=== PATIENT | female | born 1960 | race African-American/Black ===

== ENCOUNTER 2018-04-18 13:33 | Inpatient (IN) | payer OTHER ==
[~2018-04-18] VITALS: Ht 167.6 cm; Wt 77.1 kg
[~2018-04-18 13:33] MED LIST: AMOX1TAB61 PO; DOXY100T PO; FLUT1DIS3 IH; PRED-220 PO
--- NOTE | 2018-04-18 14:04 | PHYS DOC ---
Past Medical History Past Medical History: Asthma, High Cholesterol, Hypertension Past Surgical History: Hysterectomy Alcohol Use: Occasionally Drug Use: None Adult General Chief Complaint Chief Complaint: SHORTNESS OF BREATH HPI HPI Patient is a 57 year old female was presenting to the emergency room chief complaint shortness of breath URI noted yesterday shortness with increased at 4 AM today history of asthma last admission over 3 years ago she had been doing quite well overall. Symptoms are moderate in there slowly worsening with time no relief with home treatment Review of Systems Review of Systems Constitutional: Denies fever or chills [] Eyes: Denies change in visual acuity, redness, or eye pain [] Cardiovascular: No additional information not addressed in HPI [] GI: Denies abdominal pain, nausea, vomiting, bloody stools or diarrhea [] : Denies dysuria or hematuria [] Neurologic: Denies headache, focal weakness or sensory changes [] Endocrine: Denies polyuria or polydipsia [] All other systems were reviewed and found to be within normal limits, except as documented in this note. Current Medications Current Medications Current Medications Medications (Trade) Dose Ordered Sig/Iris Start Time Stop Time Status Last Admin Dose Admin Albuterol Sulfate (Ventolin Neb Soln) 10 mg 1X ONCE 04/18/18 14:30 04/18/18 14:31 DC 04/18/18 14:11 10 MG Albuterol/ Ipratropium (Duoneb) 3 ml RTQID 04/18/18 16:00 04/19/18 15:59 Magnesium Sulfate/ Dextrose 100 ml @ 100 mls/hr 1X ONCE 04/18/18 15:30 04/18/18 16:29 04/18/18 15:50 100 MLS/HR Methylprednisolone Sodium Succinate (SOLU-Medrol 125MG VIAL) 125 mg 1X ONCE 04/18/18 14:30 04/18/18 14:31 DC 04/18/18 14:20 125 MG Potassium Chloride (KCl Oral Soln) 40 meq 1X ONCE 04/18/18 15:45 04/18/18 15:46 DC 04/18/18 15:52 40 MEQ Allergies Allergies Allergies Coded Allergies Type Severity Reaction Last Updated Verified No Known Drug Allergies 07/01/15 No Physical Exam Physical Exam Constitutional: Well developed, well nourished, mild distress, non-toxic appearance. [] HENT: Normocephalic, atraumatic, bilateral external ears normal, oropharynx moist, no oral exudates, nose normal. [] Eyes: PERRLA, EOMI, conjunctiva normal, no discharge. [] Neck: Normal range of motion, no tenderness, supple, no stridor. [] Cardiovascular:Heart rate regular rhythm, no murmur [] Lungs & Thorax: Diffuse wheezing with accessory muscle use speak in short sentences Abdomen: Bowel sounds normal, soft, no tenderness, no masses, no pulsatile masses. [] Skin: Warm, dry, no erythema, no rash. [] Back: No tenderness, no CVA tenderness. [] Extremities: No tenderness, no cyanosis, no clubbing, ROM intact, no edema. [] Neurologic: Alert and oriented X 3, normal motor function, normal sensory function, no focal deficits noted. [] Psychologic: Affect normal, judgement normal, mood normal. [] Current Patient Data Vital Signs Vital Signs Date Time Temp Pulse Resp B/P (MAP) Pulse Ox O2 Delivery O2 Flow Rate FiO2 04/18/18 14:11 96 Nasal Cannula 3.0 04/18/18 13:42 98.7 102 24 166/81 (109) 98.7 Lab Values Laboratory Tests Test 04/18/18 14:08 White Blood Count 17.2 x10^3/uL (4.0-11.0) H Red Blood Count 3.97 x10^6/uL (3.50-5.40) Hemoglobin 12.0 g/dL (12.0-15.5) Hematocrit 35.6 % (36.0-47.0) L Mean Corpuscular Volume 90 fL (79-100) Mean Corpuscular Hemoglobin 30 pg (25-35) Mean Corpuscular Hemoglobin Concent 34 g/dL (31-37) Red Cell Distribution Width 14.6 % (11.5-14.5) H Platelet Count 477 x10^3/uL (140-400) H Neutrophils (%) (Auto) 87 % (31-73) H Lymphocytes (%) (Auto) 8 % (24-48) L Monocytes (%) (Auto) 5 % (0-9) Eosinophils (%) (Auto) 0 % (0-3) Basophils (%) (Auto) 0 % (0-3) Neutrophils # (Auto) 15.0 x10^3uL (1.8-7.7) H Lymphocytes # (Auto) 1.3 x10^3/uL (1.0-4.8) Monocytes # (Auto) 0.8 x10^3/uL (0.0-1.1) Eosinophils # (Auto) 0.0 x10^3/uL (0.0-0.7) Basophils # (Auto) 0.1 x10^3/uL (0.0-0.2) Segmented Neutrophils % 81 % (35-66) H Band Neutrophils % 4 % (0-9) Lymphocytes % 10 % (24-48) L Monocytes % 5 % (0-10) Platelet Estimate Increased (ADEQUATE) Sodium Level 139 mmol/L (136-145) Potassium Level 3.2 mmol/L (3.5-5.1) L Chloride Level 105 mmol/L (98-107) Carbon Dioxide Level 26 mmol/L (21-32) Anion Gap 8 (6-14) Blood Urea Nitrogen 12 mg/dL (7-20) Creatinine 0.9 mg/dL (0.6-1.0) Estimated GFR (Cockcroft-Gault) 78.1 BUN/Creatinine Ratio 13 (6-20) Glucose Level 119 mg/dL (70-99) H Calcium Level 10.0 mg/dL (8.5-10.1) Total Bilirubin 0.5 mg/dL (0.2-1.0) Aspartate Amino Transferase (AST) 21 U/L (15-37) Alanine Aminotransferase (ALT) 22 U/L (14-59) Alkaline Phosphatase 132 U/L (46-116) H Total Protein 8.6 g/dL (6.4-8.2) H Albumin 4.0 g/dL (3.4-5.0) Albumin/Globulin Ratio 0.9 (1.0-1.7) L Laboratory Tests 04/18/18 14:08 Laboratory Tests 04/18/18 14:08 EKG EKG Normal sinus rhythm rate of 96 no acute ischemic changes noted interpreted by me time of encounter no STEMI. Radiology/Procedures Radiology/Procedures [] Impressions: Chest x-ray negative Course & Med Decision Making Course & Med Decision Making Pertinent Labs and Imaging studies reviewed. (See chart for details) []57-year-old female presenting with asthma exacerbation. Patient was given hour continuous nebs as well as Solu-Medrol despite that patient still wheezing she has improved air movement after the hour of continuous nebs but still quite dyspneic. She is able to speak full sentences so I do not think that she requires BiPAP she is maintaining her oxygenation however respiratory therapy was called for repeat albuterol therapy and I spoke with Dr. Jon for [facility]ission to the hospital for further evaluation of the asthma. Dragon Disclaimer Dragon Disclaimer This electronic medical record was generated, in whole or in part, using a voice recognition dictation system. Departure Departure Impression: Primary Impression: Asthma exacerbation Disposition: ADMITTED INPATIENT Condition: STABLE Referrals: NO PCP (PCP) MOMO LUZ MD Apr 18, 2018 14:04
--- NOTE | 2018-04-18 14:11 | EKG ---
[facility] [address] [place] [id number] Test Date: 2018-04-18 Test Time: 14:05:59 Pat Name: JUVE VELA Department: Room: Gender: F Retirement Administrator: : 1960 Requested By: MOMO LUZ Order Number: [id number] Reading MD: Dorian Hamilton MD Measurements Intervals [place] Rate: 95 P: 57 NC: 154 QRS: -31 QRSD: 76 T: 59 QT: 344 QTc: 435 Interpretive Statements SINUS RHYTHM ABNORMAL LEFT AXIS DEVIATION LOW LIMB LEAD VOLTAGE Electronically Signed On 04-23-2018 11:45:21 CDT by Dorian Hamilton MD
[2018-04-18 14:26] LABS: BASO # 0.1 x10^3/uL (0.0-0.2); BASO % 0 % (0-3); EOS % 0 % (0-3); HEMATOCRIT 35.6 % (36.0-47.0); LYMPH # 1.3 x10^3/uL (1.0-4.8); LYMPH % 8 % (24-48); MEAN CORPUSCULAR HEMOGLOBIN 30 pg (25-35); MEAN CORPUSCULAR HGB CONC 34 g/dL (31-37); MEAN CORPUSCULAR VOLUME 90 fL (79-100); MONO # 0.8 x10^3/uL (0.0-1.1); MONO % 5 % (0-9); NEUT % 87 % (31-73); PLATELET COUNT 477 x10^3/uL (140-400); RED BLOOD COUNT 3.97 x10^6/uL (3.50-5.40); RED CELL DISTRIBUTION WIDTH 14.6 % (11.5-14.5); WHITE BLOOD COUNT 17.2 x10^3/uL (4.0-11.0)
[2018-04-18] MEDS ORDERED: methylPREDNISolone SOD SUCC PF 125 MG/2 ML VIAL. IV ONE (14:30)
[2018-04-18] MEDS ORDERED: ALBUTEROL SULFATE 2.5 MG/3 ML NEBU. CONT NEB ONE (14:30)
--- NOTE | 2018-04-18 14:37 | RAD ---
EXAM: Chest, single view. HISTORY: Difficulty breathing. COMPARISON: 07/01/2015 FINDINGS: A frontal view of the chest is obtained. There is no infiltrate, pleural effusion or pneumothorax. The heart is normal in size for portable technique. IMPRESSION: No acute pulmonary finding. Electronically signed by: Cara Stacy MD (04/18/2018 2:34 PM) [facility]
[2018-04-18 14:43] LABS: CREATININE 0.9 mg/dL (0.6-1.0); GFR 78.1; POTASSIUM 3.2 mmol/L (3.5-5.1)
[2018-04-18 14:48] LABS: ALBUMIN/GLOBULIN RATIO 0.9 (1.0-1.7); TOTAL BILIRUBIN 0.5 mg/dL (0.2-1.0); TOTAL PROTEIN 8.6 g/dL (6.4-8.2)
[2018-04-18 15:27] LABS: % BANDS 4 % (0-9); % LYMPHS 10 % (24-48); % MONOS 5 % (0-10); % SEGS 81 % (35-66)
[2018-04-18] MEDS ORDERED: MAGNESIUM SULFATE 1GM 100 ML IV ONE (15:30)
[2018-04-18 15:31] LABS: PLT ESTIMATE INCREASED (ADEQUATE)
[2018-04-18] MEDS ORDERED: POTASSIUM CHLORIDE 20 MEQ/15 ML ORAL LIQUID. PO ONE (15:45)
[2018-04-18] MEDS: IPRATRPIUM/ALBUTEROL 0.5/2.5MG 3 ML NEBU. NEB SCH ×2 (15:57→18:20)
[2018-04-18] MEDS ORDERED: NAPR500T8 PO (17:24)
[2018-04-18] MEDS ORDERED: ALBU2.5V5 NEB (17:24)
[2018-04-18] MEDS ORDERED: AMLO10TA6 PO (17:33)
[2018-04-18] MEDS ORDERED: SPIR25TA5 PO (17:33)
[2018-04-18] MEDS ORDERED: METF850T8 PO (17:33)
[2018-04-18] MEDS ORDERED: HYDR12.53 PO (17:33)
[2018-04-18] MEDS: BUDESONIDE 0.5 MG/2 ML NEBU. NEB SCH (18:20)
--- NOTE | 2018-04-18 19:02 | PDOC1 ---
History and Physical Date of Admission Date of Admission DATE: 04/18/18 TIME: 19:02 Identification/Chief Complaint Chief Complaint presented to er with severe dyspnea, wheezing, did not respond to efforts in ER with conservative rx Past Medical History Past Medical History Past Medical History Past Medical History: Asthma, High Cholesterol, Hypertension Past Surgical History: Hysterectomy Alcohol Use: Occasionally Drug Use: occ THC smokes family hx asthma Cardiovascular: HTN, Hyperlipidemia Pulmonary: Asthma GI: GERD Musculoskeletal: Osteoarthritis Endocrine: Other Past Surgical History Past Surgical History: Other Family History Family History: Asthma Social History Smoke: No ALCOHOL: none Drugs: None, Marijuana Current Medications Current Medications Current Medications Albuterol Sulfate (Ventolin Neb Soln) 10 mg 1X ONCE CONT NEB Last administered on 04/18/18at 14:11; Start 04/18/18 at 14:30; Stop 04/18/18 at 14:31 ; Status DC Methylprednisolone Sodium Succinate (SOLU-Medrol 125MG VIAL) 125 mg 1X ONCE IV Last administered on 04/18/18at 14:20; Start 04/18/18 at 14:30; Stop 04/18/18 at 14:31; Status DC Magnesium Sulfate/ Dextrose 100 ml @ 100 mls/hr 1X ONCE IV Last administered on 04/18/18at 15:50; Start 04/18/18 at 15:30; Stop 04/18/18 at 16:29; Status DC Potassium Chloride (KCl Oral Soln) 40 meq 1X ONCE PO Last administered on 04/18at 15:52; Start 04/18/18 at 15:45; Stop 04/18/18 at 15:46; Status DC Albuterol/ Ipratropium (Duoneb) 3 ml RTQID NEB Last administered on 04/18/18at 18:20; Start 04/18/18 at 16:00; Stop 04/19/18 at 15:59 Albuterol Sulfate (Ventolin Neb Soln) 2.5 mg PRN Q4HRS PRN NEB SHORTNESS OF BREATH; Start 04/18/18 at 17:45 Amlodipine Besylate (Norvasc) 10 mg DAILY PO ; Start 04/19/18 at 09:00 Metformin HCl (Glucophage) 850 mg DAILYWBKFT PO ; Start 04/19/18 at 08:00 Budesonide (Pulmicort) 0.5 mg RTBID NEB Last administered on 04/18/18at 18:20; Start 04/18/18 at 20:00 Hydrochlorothiazide (Hydrodiuril) 25 mg DAILY PO ; Start 04/19/18 at 09:00 Naproxen (Naprosyn) 750 mg BID PO ; Start 04/18/18 at 21:00 Spironolactone (Aldactone) 25 mg DAILY PO ; Start 04/19/18 at 09:00 Cetirizine HCl (ZyrTEC) 10 mg DAILY PO ; Start 04/19/18 at 09:00 Methylprednisolone Sodium Succinate (SOLU-Medrol 125MG VIAL) 100 mg Q8HRS IV ; Start 04/18/18 at 22:00 Montelukast Sodium (Singulair) 10 mg QHS PO ; Start 04/18/18 at 21:00 Active Scripts Active Reported Amlodipine Besylate 10 Mg Tablet 10 Mg PO DAILY Metformin Hcl 850 Mg Tablet 850 Mg PO DAILYWBKFT Spironolactone 25 Mg Tablet 1 Tab PO DAILY Hydrochlorothiazide Capsule (Hydrochlorothiazide) 12.5 Mg Capsule 25 Mg PO DAILY Albuterol Sulfate Neb Soln (Albuterol Sulfate) 2.5 Mg/3 Ml Vial.neb 1 Vial NEB PRN Q4HRS Naproxen 500 Mg Tablet.dr 750 Mg PO BID patient takes in am and at night Advair 250-50 Diskus (Fluticasone/Salmeterol) 1 Each Disk.w.dev 1 Puff IH BID Allergies Allergies: Coded Allergies: No Known Drug Allergies (Unverified , 07/01/15) ROS Review of System Review of Systems Review of Systems Constitutional: Denies fever or chills [] Eyes: Denies change in visual acuity, redness, or eye pain [] pulm very SOA with wheezing Cardiovascular: No additional information not addressed in HPI [] GI: Denies abdominal pain, nausea, vomiting, bloody stools or diarrhea [] : Denies dysuria or hematuria [] Neurologic: Denies headache, focal weakness or sensory changes [] Endocrine: Denies polyuria or polydipsia [] 14 pt systems were reviewed and found to be within normal limits, except as documented Physical Exam Physical Exam Physical Exam Physical Exam Constitutional: Well developed, well nourished, mild distress, non-toxic appearance. [] HENT: Normocephalic, atraumatic, bilateral external ears normal, oropharynx moist, no oral exudates, nose normal. [] Eyes: PERRLA, EOMI, conjunctiva normal, no discharge. [] Neck: Normal range of motion, no tenderness, supple, no stridor. [] Cardiovascular:Heart rate regular rhythm, no murmur [] Lungs & Thorax: Diffuse wheezing with accessory muscle use speak in short sentences Abdomen: Bowel sounds normal, soft, no tenderness, no masses, no pulsatile masses. [] Skin: Warm, dry, no erythema, no rash. [] Back: No tenderness, no CVA tenderness. [] Extremities: No tenderness, no cyanosis, no clubbing, ROM intact, no edema. [] Neurologic: Alert and oriented X 3, normal motor function, normal sensory function, no focal deficits noted. [] Psychologic: Affect normal, judgement normal, mood normal. [] General: Alert, Oriented X3, Cooperative HEENT: PERRLA Rectal Exam: not examined PELVIC: Examination not indicated Extremities: No cyanosis Neuro: Normal speech, Cranial nerves 3-12 NL Psych/Mental Status: Mental status NL, Mood NL Vitals Vitals Vital Signs Date Time Temp Pulse Resp B/P (MAP) Pulse Ox O2 Delivery O2 Flow Rate FiO2 04/18/18 18:20 95 Nasal Cannula 3.0 04/18/18 16:30 92 16 149/73 (98) 04/18/18 13:42 98.7 98.7 Labs Labs Laboratory Tests Test 04/18/18 14:08 White Blood Count 17.2 x10^3/uL (4.0-11.0) Red Blood Count 3.97 x10^6/uL (3.50-5.40) Hemoglobin 12.0 g/dL (12.0-15.5) Hematocrit 35.6 % (36.0-47.0) Mean Corpuscular Volume 90 fL (79-100) Mean Corpuscular Hemoglobin 30 pg (25-35) Mean Corpuscular Hemoglobin Concent 34 g/dL (31-37) Red Cell Distribution Width 14.6 % (11.5-14.5) Platelet Count 477 x10^3/uL (140-400) Neutrophils (%) (Auto) 87 % (31-73) Lymphocytes (%) (Auto) 8 % (24-48) Monocytes (%) (Auto) 5 % (0-9) Eosinophils (%) (Auto) 0 % (0-3) Basophils (%) (Auto) 0 % (0-3) Neutrophils # (Auto) 15.0 x10^3uL (1.8-7.7) Lymphocytes # (Auto) 1.3 x10^3/uL (1.0-4.8) Monocytes # (Auto) 0.8 x10^3/uL (0.0-1.1) Eosinophils # (Auto) 0.0 x10^3/uL (0.0-0.7) Basophils # (Auto) 0.1 x10^3/uL (0.0-0.2) Segmented Neutrophils % 81 % (35-66) Band Neutrophils % 4 % (0-9) Lymphocytes % 10 % (24-48) Monocytes % 5 % (0-10) Platelet Estimate Increased (ADEQUATE) Sodium Level 139 mmol/L (136-145) Potassium Level 3.2 mmol/L (3.5-5.1) Chloride Level 105 mmol/L (98-107) Carbon Dioxide Level 26 mmol/L (21-32) Anion Gap 8 (6-14) Blood Urea Nitrogen 12 mg/dL (7-20) Creatinine 0.9 mg/dL (0.6-1.0) Estimated GFR (Cockcroft-Gault) 78.1 BUN/Creatinine Ratio 13 (6-20) Glucose Level 119 mg/dL (70-99) Calcium Level 10.0 mg/dL (8.5-10.1) Total Bilirubin 0.5 mg/dL (0.2-1.0) Aspartate Amino Transf (AST/SGOT) 21 U/L (15-37) Alanine Aminotransferase (ALT/SGPT) 22 U/L (14-59) Alkaline Phosphatase 132 U/L (46-116) Total Protein 8.6 g/dL (6.4-8.2) Albumin 4.0 g/dL (3.4-5.0) Albumin/Globulin Ratio 0.9 (1.0-1.7) Laboratory Tests Test 04/18/18 14:08 White Blood Count 17.2 x10^3/uL (4.0-11.0) Red Blood Count 3.97 x10^6/uL (3.50-5.40) Hemoglobin 12.0 g/dL (12.0-15.5) Hematocrit 35.6 % (36.0-47.0) Mean Corpuscular Volume 90 fL (79-100) Mean Corpuscular Hemoglobin 30 pg (25-35) Mean Corpuscular Hemoglobin Concent 34 g/dL (31-37) Red Cell Distribution Width 14.6 % (11.5-14.5) Platelet Count 477 x10^3/uL (140-400) Neutrophils (%) (Auto) 87 % (31-73) Lymphocytes (%) (Auto) 8 % (24-48) Monocytes (%) (Auto) 5 % (0-9) Eosinophils (%) (Auto) 0 % (0-3) Basophils (%) (Auto) 0 % (0-3) Neutrophils # (Auto) 15.0 x10^3uL (1.8-7.7) Lymphocytes # (Auto) 1.3 x10^3/uL (1.0-4.8) Monocytes # (Auto) 0.8 x10^3/uL (0.0-1.1) Eosinophils # (Auto) 0.0 x10^3/uL (0.0-0.7) Basophils # (Auto) 0.1 x10^3/uL (0.0-0.2) Segmented Neutrophils % 81 % (35-66) Band Neutrophils % 4 % (0-9) Lymphocytes % 10 % (24-48) Monocytes % 5 % (0-10) Platelet Estimate Increased (ADEQUATE) Sodium Level 139 mmol/L (136-145) Potassium Level 3.2 mmol/L (3.5-5.1) Chloride Level 105 mmol/L (98-107) Carbon Dioxide Level 26 mmol/L (21-32) Anion Gap 8 (6-14) Blood Urea Nitrogen 12 mg/dL (7-20) Creatinine 0.9 mg/dL (0.6-1.0) Estimated GFR (Cockcroft-Gault) 78.1 BUN/Creatinine Ratio 13 (6-20) Glucose Level 119 mg/dL (70-99) Calcium Level 10.0 mg/dL (8.5-10.1) Total Bilirubin 0.5 mg/dL (0.2-1.0) Aspartate Amino Transf (AST/SGOT) 21 U/L (15-37) Alanine Aminotransferase (ALT/SGPT) 22 U/L (14-59) Alkaline Phosphatase 132 U/L (46-116) Total Protein 8.6 g/dL (6.4-8.2) Albumin 4.0 g/dL (3.4-5.0) Albumin/Globulin Ratio 0.9 (1.0-1.7) VTE Prophylaxis Ordered VTE Prophylaxis Devices: No VTE Pharmacological Prophylaxi: Yes Assessment/Plan Assessment/Plan impression 1. acute hypoxic resp failure 2. mod intermittent asthma with severe acute exacerbation 3. thc abuse 4. metabolic syndrome plan 1. iv steroids, taper 2. albuterol nebs q 4 hrs 3. singulair 10mg po q hs 4. zyrtec 10mg po daily 5. avoid THC USE, educated 6. o2 support 7. gi prophylaxis 8. sq lovenox dvt prophylaxis SATISH LEE MD Apr 18, 2018 19:02
[2018-04-18] MEDS ORDERED: POTASSIUM CHLORIDE 20 MEQ TABLET.ER. PO ONE (19:15)
[2018-04-18 19:42] VITALS: BP 132/79
[2018-04-18] MEDS: NAPROXEN 250 MG TABLET PO SCH (21:05)
[2018-04-18] MEDS: methylPREDNISolone SOD SUCC PF 125 MG/2 ML VIAL. IV SCH (21:06)
[2018-04-18] MEDS: MONTELUKAST SODIUM 10 MG TABLET. PO SCH (21:06)
[2018-04-18] MEDS: ALBUTEROL SULFATE 2.5 MG/3 ML NEBU. NEB PRN (21:58)
[2018-04-18 23:33] VITALS: BP 121/75
[2018-04-19 03:23] VITALS: BP 156/85
[2018-04-19] MEDS: ALBUTEROL SULFATE 2.5 MG/3 ML NEBU. NEB PRN (04:01)
[2018-04-19] MEDS: methylPREDNISolone SOD SUCC PF 125 MG/2 ML VIAL. IV SCH ×3 (05:32→20:51)
[2018-04-19 07:00] VITALS: BP 152/89
[2018-04-19 07:01] LABS: BASO % 0 % (0-3); EOS % 0 % (0-3); HEMATOCRIT 32.6 % (36.0-47.0); HEMOGLOBIN 11.1 g/dL (12.0-15.5); LYMPH % 6 % (24-48); MEAN CORPUSCULAR HEMOGLOBIN 31 pg (25-35); MEAN CORPUSCULAR HGB CONC 34 g/dL (31-37); MEAN CORPUSCULAR VOLUME 89 fL (79-100); MONO # 0.4 x10^3/uL (0.0-1.1); MONO % 3 % (0-9); NEUT # 14.8 x10^3uL (1.8-7.7); NEUT % 91 % (31-73); PLATELET COUNT 400 x10^3/uL (140-400); RED BLOOD COUNT 3.65 x10^6/uL (3.50-5.40); RED CELL DISTRIBUTION WIDTH 14.7 % (11.5-14.5); WHITE BLOOD COUNT 16.3 x10^3/uL (4.0-11.0)
[2018-04-19 07:12] LABS: CALCIUM 9.5 mg/dL (8.5-10.1); CREATININE 0.7 mg/dL (0.6-1.0); GFR 104.4; POTASSIUM 4.3 mmol/L (3.5-5.1)
[2018-04-19] MEDS: IPRATRPIUM/ALBUTEROL 0.5/2.5MG 3 ML NEBU. NEB SCH ×5 (07:22→19:47)
[2018-04-19] MEDS: BUDESONIDE 0.5 MG/2 ML NEBU. NEB SCH ×2 (07:22→19:47)
[2018-04-19] MEDS: metFORMIN 850 MG TABLET PO SCH (09:18)
[2018-04-19] MEDS: CETIRIZINE HCL 10 MG TABLET. PO SCH (09:18)
[2018-04-19] MEDS: PANTOPRAZOLE 40 MG TABLET.DR. PO SCH (09:18)
[2018-04-19] MEDS: NAPROXEN 250 MG TABLET PO SCH ×2 (09:18→20:51)
[2018-04-19] MEDS: SPIRONOLACTONE 25 MG TABLET PO SCH (09:18)
[2018-04-19] MEDS: amLODIPine BESYLATE 10 MG TABLET PO SCH (09:19)
[2018-04-19] MEDS: hydroCHLOROthiazide 25 MG TABLET PO SCH (09:19)
[2018-04-19] MEDS ORDERED: DEXTROSE 50% 25 GM / 50ML DISP.SYRIN. IV PRN (10:00)
[2018-04-19] MEDS ORDERED: ACETAMINOPHEN 500 MG TABLET PO PRN (10:00)
[2018-04-19] MEDS ORDERED: HYDROcodone/APAP 5/325MG 1 TAB TABLET PO PRN (10:00)
[2018-04-19] MEDS ORDERED: MORPHINE SULFATE 2 MG/ML VIAL. IV PRN (10:00)
[2018-04-19] MEDS ORDERED: ACETAMINOPHEN/CODEINE 300/30MG TABLET. PO PRN (10:00)
[2018-04-19] MEDS ORDERED: ONDANSETRON PF 4 MG/2 ML VIAL. IV PRN (10:00)
[2018-04-19 11:13] VITALS: BP 148/87
--- NOTE | 2018-04-19 12:44 | PDOC ---
PROGRESS NOTES Chief Complaint Chief Complaint 1. acute hypoxic resp failure 2. mod intermittent asthma with severe acute exacerbation 3. thc abuse 4. metabolic syndrome History of Present Illness History of Present Illness Still very wheezy both anterior and posterior auscultation No pneumonia on chest x-ray She tells me she cannot afford the inhaled steroids Has a nebulizer at home Nonsmoker No recent travels. 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 Richard Not able to DC today, very wheezy Start some Tessalon Perles and cough medicine scheduled Continue Pulmicort and DuoNeb's. I would keep tele on Vitals Vitals Vital Signs Date Time Temp Pulse Resp B/P (MAP) Pulse Ox O2 Delivery O2 Flow Rate FiO2 04/19/18 11:13 98.5 78 16 148/87 (107) 96 Room Air 98.5 04/19/18 10:47 1.0 Physical Exam General: Alert, Oriented X3, Cooperative Heart: Regular rate, Normal S1, Normal S2, No murmurs Lungs: Wheezing Abdomen: Normal bowel sounds, Soft, No tenderness, No hepatosplenomegaly Extremities: No clubbing, No cyanosis, No edema Skin: No rashes, No breakdown, No significant lesion Labs LABS Laboratory Tests Test 04/18/18 14:08 04/18/18 20:28 04/19/18 06:27 04/19/18 07:28 White Blood Count 17.2 x10^3/uL (4.0-11.0) 16.3 x10^3/uL (4.0-11.0) Red Blood Count 3.97 x10^6/uL (3.50-5.40) 3.65 x10^6/uL (3.50-5.40) Hemoglobin 12.0 g/dL (12.0-15.5) 11.1 g/dL (12.0-15.5) Hematocrit 35.6 % (36.0-47.0) 32.6 % (36.0-47.0) Mean Corpuscular Volume 90 fL (79-100) 89 fL (79-100) Mean Corpuscular Hemoglobin 30 pg (25-35) 31 pg (25-35) Mean Corpuscular Hemoglobin Concent 34 g/dL (31-37) 34 g/dL (31-37) Red Cell Distribution Width 14.6 % (11.5-14.5) 14.7 % (11.5-14.5) Platelet Count 477 x10^3/uL (140-400) 400 x10^3/uL (140-400) Neutrophils (%) (Auto) 87 % (31-73) 91 % (31-73) Lymphocytes (%) (Auto) 8 % (24-48) 6 % (24-48) Monocytes (%) (Auto) 5 % (0-9) 3 % (0-9) Eosinophils (%) (Auto) 0 % (0-3) 0 % (0-3) Basophils (%) (Auto) 0 % (0-3) 0 % (0-3) Neutrophils # (Auto) 15.0 x10^3uL (1.8-7.7) 14.8 x10^3uL (1.8-7.7) Lymphocytes # (Auto) 1.3 x10^3/uL (1.0-4.8) 1.0 x10^3/uL (1.0-4.8) Monocytes # (Auto) 0.8 x10^3/uL (0.0-1.1) 0.4 x10^3/uL (0.0-1.1) Eosinophils # (Auto) 0.0 x10^3/uL (0.0-0.7) 0.0 x10^3/uL (0.0-0.7) Basophils # (Auto) 0.1 x10^3/uL (0.0-0.2) 0.0 x10^3/uL (0.0-0.2) Segmented Neutrophils % 81 % (35-66) Band Neutrophils % 4 % (0-9) Lymphocytes % 10 % (24-48) Monocytes % 5 % (0-10) Platelet Estimate Increased (ADEQUATE) Sodium Level 139 mmol/L (136-145) 141 mmol/L (136-145) Potassium Level 3.2 mmol/L (3.5-5.1) 4.3 mmol/L (3.5-5.1) Chloride Level 105 mmol/L (98-107) 106 mmol/L (98-107) Carbon Dioxide Level 26 mmol/L (21-32) 24 mmol/L (21-32) Anion Gap 8 (6-14) 11 (6-14) Blood Urea Nitrogen 12 mg/dL (7-20) 13 mg/dL (7-20) Creatinine 0.9 mg/dL (0.6-1.0) 0.7 mg/dL (0.6-1.0) Estimated GFR (Cockcroft-Gault) 78.1 104.4 BUN/Creatinine Ratio 13 (6-20) Glucose Level 119 mg/dL (70-99) 159 mg/dL (70-99) Calcium Level 10.0 mg/dL (8.5-10.1) 9.5 mg/dL (8.5-10.1) Magnesium Level 2.0 mg/dL (1.8-2.4) Total Bilirubin 0.5 mg/dL (0.2-1.0) Aspartate Amino Transf (AST/SGOT) 21 U/L (15-37) Alanine Aminotransferase (ALT/SGPT) 22 U/L (14-59) Alkaline Phosphatase 132 U/L (46-116) Total Protein 8.6 g/dL (6.4-8.2) Albumin 4.0 g/dL (3.4-5.0) Albumin/Globulin Ratio 0.9 (1.0-1.7) Glucose (Fingerstick) 211 mg/dL (70-99) 138 mg/dL (70-99) Test 04/19/18 10:46 Glucose (Fingerstick) 176 mg/dL (70-99) Review of Systems Review of Systems Wheezy, cough, SOA, the rest of ROS 14 point negative Comment Review of Relevant I have reviewed the following items neil (where applicable) has been applied. Labs Laboratory Tests Test 04/18/18 14:08 04/18/18 20:28 04/19/18 06:27 04/19/18 07:28 White Blood Count 17.2 x10^3/uL (4.0-11.0) 16.3 x10^3/uL (4.0-11.0) Red Blood Count 3.97 x10^6/uL (3.50-5.40) 3.65 x10^6/uL (3.50-5.40) Hemoglobin 12.0 g/dL (12.0-15.5) 11.1 g/dL (12.0-15.5) Hematocrit 35.6 % (36.0-47.0) 32.6 % (36.0-47.0) Mean Corpuscular Volume 90 fL (79-100) 89 fL (79-100) Mean Corpuscular Hemoglobin 30 pg (25-35) 31 pg (25-35) Mean Corpuscular Hemoglobin Concent 34 g/dL (31-37) 34 g/dL (31-37) Red Cell Distribution Width 14.6 % (11.5-14.5) 14.7 % (11.5-14.5) Platelet Count 477 x10^3/uL (140-400) 400 x10^3/uL (140-400) Neutrophils (%) (Auto) 87 % (31-73) 91 % (31-73) Lymphocytes (%) (Auto) 8 % (24-48) 6 % (24-48) Monocytes (%) (Auto) 5 % (0-9) 3 % (0-9) Eosinophils (%) (Auto) 0 % (0-3) 0 % (0-3) Basophils (%) (Auto) 0 % (0-3) 0 % (0-3) Neutrophils # (Auto) 15.0 x10^3uL (1.8-7.7) 14.8 x10^3uL (1.8-7.7) Lymphocytes # (Auto) 1.3 x10^3/uL (1.0-4.8) 1.0 x10^3/uL (1.0-4.8) Monocytes # (Auto) 0.8 x10^3/uL (0.0-1.1) 0.4 x10^3/uL (0.0-1.1) Eosinophils # (Auto) 0.0 x10^3/uL (0.0-0.7) 0.0 x10^3/uL (0.0-0.7) Basophils # (Auto) 0.1 x10^3/uL (0.0-0.2) 0.0 x10^3/uL (0.0-0.2) Segmented Neutrophils % 81 % (35-66) Band Neutrophils % 4 % (0-9) Lymphocytes % 10 % (24-48) Monocytes % 5 % (0-10) Platelet Estimate Increased (ADEQUATE) Sodium Level 139 mmol/L (136-145) 141 mmol/L (136-145) Potassium Level 3.2 mmol/L (3.5-5.1) 4.3 mmol/L (3.5-5.1) Chloride Level 105 mmol/L (98-107) 106 mmol/L (98-107) Carbon Dioxide Level 26 mmol/L (21-32) 24 mmol/L (21-32) Anion Gap 8 (6-14) 11 (6-14) Blood Urea Nitrogen 12 mg/dL (7-20) 13 mg/dL (7-20) Creatinine 0.9 mg/dL (0.6-1.0) 0.7 mg/dL (0.6-1.0) Estimated GFR (Cockcroft-Gault) 78.1 104.4 BUN/Creatinine Ratio 13 (6-20) Glucose Level 119 mg/dL (70-99) 159 mg/dL (70-99) Calcium Level 10.0 mg/dL (8.5-10.1) 9.5 mg/dL (8.5-10.1) Magnesium Level 2.0 mg/dL (1.8-2.4) Total Bilirubin 0.5 mg/dL (0.2-1.0) Aspartate Amino Transf (AST/SGOT) 21 U/L (15-37) Alanine Aminotransferase (ALT/SGPT) 22 U/L (14-59) Alkaline Phosphatase 132 U/L (46-116) Total Protein 8.6 g/dL (6.4-8.2) Albumin 4.0 g/dL (3.4-5.0) Albumin/Globulin Ratio 0.9 (1.0-1.7) Glucose (Fingerstick) 211 mg/dL (70-99) 138 mg/dL (70-99) Test 04/19/18 10:46 Glucose (Fingerstick) 176 mg/dL (70-99) Laboratory Tests Test 04/18/18 14:08 04/18/18 20:28 04/19/18 06:27 04/19/18 07:28 White Blood Count 17.2 x10^3/uL (4.0-11.0) 16.3 x10^3/uL (4.0-11.0) Red Blood Count 3.97 x10^6/uL (3.50-5.40) 3.65 x10^6/uL (3.50-5.40) Hemoglobin 12.0 g/dL (12.0-15.5) 11.1 g/dL (12.0-15.5) Hematocrit 35.6 % (36.0-47.0) 32.6 % (36.0-47.0) Mean Corpuscular Volume 90 fL (79-100) 89 fL (79-100) Mean Corpuscular Hemoglobin 30 pg (25-35) 31 pg (25-35) Mean Corpuscular Hemoglobin Concent 34 g/dL (31-37) 34 g/dL (31-37) Red Cell Distribution Width 14.6 % (11.5-14.5) 14.7 % (11.5-14.5) Platelet Count 477 x10^3/uL (140-400) 400 x10^3/uL (140-400) Neutrophils (%) (Auto) 87 % (31-73) 91 % (31-73) Lymphocytes (%) (Auto) 8 % (24-48) 6 % (24-48) Monocytes (%) (Auto) 5 % (0-9) 3 % (0-9) Eosinophils (%) (Auto) 0 % (0-3) 0 % (0-3) Basophils (%) (Auto) 0 % (0-3) 0 % (0-3) Neutrophils # (Auto) 15.0 x10^3uL (1.8-7.7) 14.8 x10^3uL (1.8-7.7) Lymphocytes # (Auto) 1.3 x10^3/uL (1.0-4.8) 1.0 x10^3/uL (1.0-4.8) Monocytes # (Auto) 0.8 x10^3/uL (0.0-1.1) 0.4 x10^3/uL (0.0-1.1) Eosinophils # (Auto) 0.0 x10^3/uL (0.0-0.7) 0.0 x10^3/uL (0.0-0.7) Basophils # (Auto) 0.1 x10^3/uL (0.0-0.2) 0.0 x10^3/uL (0.0-0.2) Segmented Neutrophils % 81 % (35-66) Band Neutrophils % 4 % (0-9) Lymphocytes % 10 % (24-48) Monocytes % 5 % (0-10) Platelet Estimate Increased (ADEQUATE) Sodium Level 139 mmol/L (136-145) 141 mmol/L (136-145) Potassium Level 3.2 mmol/L (3.5-5.1) 4.3 mmol/L (3.5-5.1) Chloride Level 105 mmol/L (98-107) 106 mmol/L (98-107) Carbon Dioxide Level 26 mmol/L (21-32) 24 mmol/L (21-32) Anion Gap 8 (6-14) 11 (6-14) Blood Urea Nitrogen 12 mg/dL (7-20) 13 mg/dL (7-20) Creatinine 0.9 mg/dL (0.6-1.0) 0.7 mg/dL (0.6-1.0) Estimated GFR (Cockcroft-Gault) 78.1 104.4 BUN/Creatinine Ratio 13 (6-20) Glucose Level 119 mg/dL (70-99) 159 mg/dL (70-99) Calcium Level 10.0 mg/dL (8.5-10.1) 9.5 mg/dL (8.5-10.1) Magnesium Level 2.0 mg/dL (1.8-2.4) Total Bilirubin 0.5 mg/dL (0.2-1.0) Aspartate Amino Transf (AST/SGOT) 21 U/L (15-37) Alanine Aminotransferase (ALT/SGPT) 22 U/L (14-59) Alkaline Phosphatase 132 U/L (46-116) Total Protein 8.6 g/dL (6.4-8.2) Albumin 4.0 g/dL (3.4-5.0) Albumin/Globulin Ratio 0.9 (1.0-1.7) Glucose (Fingerstick) 211 mg/dL (70-99) 138 mg/dL (70-99) Test 04/19/18 10:46 Glucose (Fingerstick) 176 mg/dL (70-99) Medications Current Medications Albuterol Sulfate (Ventolin Neb Soln) 10 mg 1X ONCE CONT NEB Last administered on 04/18/18at 14:11; Start 04/18/18 at 14:30; Stop 04/18/18 at 14:31 ; Status DC Methylprednisolone Sodium Succinate (SOLU-Medrol 125MG VIAL) 125 mg 1X ONCE IV Last administered on 04/18/18at 14:20; Start 04/18/18 at 14:30; Stop 04/18/18 at 14:31; Status DC Magnesium Sulfate/ Dextrose 100 ml @ 100 mls/hr 1X ONCE IV Last administered on 04/18/18at 15:50; Start 04/18/18 at 15:30; Stop 04/18/18 at 16:29; Status DC Potassium Chloride (KCl Oral Soln) 40 meq 1X ONCE PO Last administered on 04/18at 15:52; Start 04/18/18 at 15:45; Stop 04/18/18 at 15:46; Status DC Albuterol/ Ipratropium (Duoneb) 3 ml RTQID NEB Last administered on 04/19/18at 10:47; Start 04/18/18 at 16:00; Stop 04/19/18 at 15:59 Albuterol Sulfate (Ventolin Neb Soln) 2.5 mg PRN Q4HRS PRN NEB SHORTNESS OF BREATH Last administered on 04/19/18at 04:01; Start 04/18/18 at 17:45 Amlodipine Besylate (Norvasc) 10 mg DAILY PO Last administered on 04/19/18at 09: 19; Start 04/19/18 at 09:00 Metformin HCl (Glucophage) 850 mg DAILYWBKFT PO Last administered on 04/19/18at 09:18; Start 04/19/18 at 08:00 Budesonide (Pulmicort) 0.5 mg RTBID NEB Last administered on 04/19/18at 07:22; Start 04/18/18 at 20:00 Hydrochlorothiazide (Hydrodiuril) 25 mg DAILY PO Last administered on at 09:19; Start 04/19/18 at 09:00 Naproxen (Naprosyn) 750 mg BID PO Last administered on 04/19/18at 09:18; Start 04/18/18 at 21:00 Spironolactone (Aldactone) 25 mg DAILY PO Last administered on 04/19/18at 09:18 ; Start 04/19/18 at 09:00 Cetirizine HCl (ZyrTEC) 10 mg DAILY PO Last administered on 04/19/18at 09:18; Start 04/19/18 at 09:00 Methylprednisolone Sodium Succinate (SOLU-Medrol 125MG VIAL) 100 mg Q8HRS IV Last administered on 04/19/18at 05:32; Start 04/18/18 at 22:00 Montelukast Sodium (Singulair) 10 mg QHS PO Last administered on 04/18/18at 21: 06; Start 04/18/18 at 21:00 Pantoprazole Sodium (Protonix) 40 mg DAILYAC PO Last administered on 04/19/18at 09:18; Start 04/19/18 at 07:30 Potassium Chloride (Klor-Con) 40 meq 1X ONCE PO ; Start 04/18/18 at 19:15; Stop 04/18/18 at 19:16; Status UNV Acetaminophen (Tylenol) 500 mg PRN Q6HRS PRN PO MILD PAIN / TEMP; Start at 10:00 Acetaminophen/ Codeine Phosphate (Tylenol #3) 1 tab PRN Q6HRS PRN PO PAIN; Start 04/19/18 at 10:00 Ondansetron HCl (Zofran) 4 mg PRN Q6HRS PRN IV NAUSEA/VOMITING; Start 04/19/18 at 10:00 Acetaminophen/ Hydrocodone Bitart (Lortab 5/325) 1 tab PRN Q4HRS PRN PO PAIN; Start 04/19/18 at 10:00 Morphine Sulfate (Morphine Sulfate) 2 mg PRN Q2HR PRN IV PAIN; Start 04/19/18 at 10:00 Insulin Human Lispro (HumaLOG) 0-9 UNITS TIDWMEALS SQ ; Start 04/19/18 at 12:00 Dextrose (Dextrose 50%-Water Syringe) 12.5 gm PRN Q15MIN PRN IV SEE COMMENTS; Start 04/19/18 at 10:00 Active Scripts Active Reported Amlodipine Besylate 10 Mg Tablet 10 Mg PO DAILY Metformin Hcl 850 Mg Tablet 850 Mg PO DAILYWBKFT Spironolactone 25 Mg Tablet 1 Tab PO DAILY Hydrochlorothiazide Capsule (Hydrochlorothiazide) 12.5 Mg Capsule 25 Mg PO DAILY Albuterol Sulfate Neb Soln (Albuterol Sulfate) 2.5 Mg/3 Ml Vial.neb 1 Vial NEB PRN Q4HRS Naproxen 500 Mg Tablet.dr 750 Mg PO BID patient takes in am and at night Advair 250-50 Diskus (Fluticasone/Salmeterol) 1 Each Disk.w.dev 1 Puff IH BID Vitals/I & O Vital Sign - Last 24 Hours 04/18/18 04/18/18 04/18/18 04/18/18 13:42 14:00 14:11 14:30 Temp 98.7 98.7 Pulse 102 102 98 Resp 24 24 B/P (MAP) 166/81 (109) 167/83 (111) 156/88 (110) Pulse Ox 91 89 96 O2 Delivery Room Air Room Air Nasal Cannula Nasal Cannula O2 Flow Rate 3.0 2.0 04/18/18 04/18/18 04/18/18 04/18/18 15:00 15:30 15:57 16:30 Pulse 96 102 92 Resp 18 18 16 B/P (MAP) 154/77 (102) 172/99 (123) 149/73 (98) Pulse Ox 100 100 95 98 O2 Delivery Nasal Cannula Nasal Cannula Nasal Cannula Nasal Cannula O2 Flow Rate 2.0 2.0 3.0 2.0 04/18/18 04/18/18 04/18/18 04/18/18 17:50 18:20 19:30 19:42 Temp 98.7 98.7 Pulse 90 Resp 20 B/P (MAP) 132/79 (96) Pulse Ox 95 98 O2 Delivery Nasal Cannula Nasal Cannula Nasal Cannula Nasal Cannula O2 Flow Rate 2.0 3.0 2.0 2.0 04/18/18 04/18/18 04/19/18 04/19/18 21:58 23:33 03:23 04:01 Temp 98.1 97.5 98.1 97.5 Pulse 83 75 Resp 20 20 B/P (MAP) 121/75 (90) 156/85 (108) Pulse Ox 99 98 97 98 O2 Delivery Nasal Cannula Nasal Cannula Nasal Cannula Nasal Cannula O2 Flow Rate 2.0 2.0 2.0 2.0 04/19/18 04/19/18 04/19/18 04/19/18 07:00 07:22 08:00 09:19 Temp 97.8 97.8 Pulse 71 71 Resp 16 B/P (MAP) 152/89 (110) 152/89 Pulse Ox 96 96 O2 Delivery Nasal Cannula Nasal Cannula Nasal Cannula O2 Flow Rate 1.0 2.0 2.0 04/19/18 04/19/18 10:47 11:13 Temp 98.5 98.5 Pulse 78 Resp 16 B/P (MAP) 148/87 (107) Pulse Ox 96 96 O2 Delivery Nasal Cannula Room Air O2 Flow Rate 1.0 Intake and Output 04/18/18 04/18/18 04/19/18 15:00 23:00 07:00 Intake Total 310 ml Balance 310 ml BROOKE GILLIAM MD Apr 19, 2018 12:44
[2018-04-19] MEDS: INSULIN LISPRO 300 UNITS/3 ML INSULN.PEN. SQ SCH ×2 (12:49→17:00)
[2018-04-19] MEDS: BENZONATATE 100 MG CAPSULE. PO SCH ×2 (14:11→20:51)
[2018-04-19] MEDS: guaiFENesin DM 200MG/20MG 10 ML SYRUP PO SCH ×3 (14:11→20:51)
[2018-04-19] MEDS ORDERED: ALBUTEROL SULFATE 2.5 MG/3 ML NEBU. NEB PRN (15:15)
[2018-04-19 15:38] VITALS: BP 110/71
[2018-04-19] MEDS: ENOXAPARIN 40 MG/0.4 ML SYRINGE. SQ SCH (17:18)
[2018-04-19 19:00] VITALS: BP 160/93
[2018-04-19] MEDS: MONTELUKAST SODIUM 10 MG TABLET. PO SCH (20:51)
--- NOTE | 2018-04-19 22:00 | CONS ---
DATE OF CONSULTATION: 04/19/2018 ATTENDING PHYSICIAN: Beny Jon M.D. REASON FOR CONSULTATION: The patient seen in pulmonary consultation at the request of Dr. Jon for asthma, increasing shortness of breath and wheeze. HISTORY OF PRESENT ILLNESS: The patient is a 57-year old who was last seen approximately 2 years ago. She has a history of asthma and mostly driven by pollen and dust. She has never had any immunotherapy. The patient has done well in the past several years utilizing p.r.n. albuterol and was at one time on Advair. She came off of the Advair because of expense. The day prior to admission, she started feeling her allergies acting up. She went to bed. She woke up and felt severely short of breath. She came in to the Emergency Room. She was utilizing accessory muscles, not able to fully complete a full sentence. Her white count was elevated. I reviewed her chest x-ray, which reveals no acute findings. The patient was admitted. She has been receiving steroids and nebulized treatments. During my evaluation, she still had elevated respiratory rate and was able to complete full sentences. She had some minimal audible wheezing. She denies fever, chills, nausea, vomiting or diarrhea. PAST MEDICAL HISTORY: 1. Asthma, mostly driven by allergies. She has been tested in the past. She is allergic to POLLEN and DUST. She has never had any immunotherapy. 2. Tobacco dependence, in remission. 3. Marijuana use. 4. Hypertension. FAMILY HISTORY: Remarkable for asthma. SOCIAL HISTORY: Socially, she is currently smoking marijuana. Denies any tobacco use. No current alcohol intake. REVIEW OF SYSTEMS: CONSTITUTIONAL: No fever or chills. EYES: No change in visual acuity. HEAD, EARS, NOSE AND THROAT: No nasal congestion. No sore throat. PULMONARY: As indicated above. CARDIOVASCULAR: No chest pain or pressure. GASTROINTESTINAL: No nausea, vomiting or diarrhea. GENITOURINARY: No dysuria or frequency. MUSCULOSKELETAL: No localized muscle aches or joint pains. SKIN: No new skin rashes. NEUROLOGICAL: No headaches, diplopia or blurred vision. ALLERGIES: No known drug allergies. PHYSICAL EXAMINATION: VITAL SIGNS: The patient had an elevated respiratory rate, currently on 2 liters of oxygen supplementation. HEENT: Eyes, the sclerae were nonicteric. NECK: Jugular venous distention was not elevated. No lymphadenopathy. CHEST: Full expansion. LUNGS: Very poor airway flow with prolonged expiratory phase and expiratory wheeze. CARDIOVASCULAR: Regular rate and rhythm with S1 and S2. No S3. ABDOMEN: Soft, nontender and nondistended. EXTREMITIES: No clubbing or cyanosis. Minimal edema. NEUROLOGICAL: The patient was awake and alert. Following commands. A detailed neuro exam was not performed. LABORATORY DATA: Labs were reviewed. White count was elevated. Hemoglobin and hematocrit were noted. Electrolytes were noted. RADIOLOGICAL DATA: Chest x-ray as indicated above. IMPRESSION: 1. Acute hypoxemic respiratory failure. 2. Acute exacerbation of asthma. 3. Acute bronchitis. 4. Marijuana use. 5. History of allergies to pollen and dust. 6. Hypertension. PLAN: 1. We will continue current regimen with IV steroids. 2. Nebulized treatments. 3. Pulmicort. 4. Discussed the above with the patient. I informed her that she would do well with the addition of a steroid inhaler. 5. Continue DVT and GI prophylaxis. I do appreciate the privilege in sharing in the patient's care. DAMON HINOJOSA MD DR: LEON/alok JOB#: [id number] / [id number]
[2018-04-19] MEDS: diphenhydrAMINE HCL 25 MG CAPSULE PO PRN (22:45)
[2018-04-19 23:00] VITALS: BP 152/80
[2018-04-20 03:00] VITALS: BP 139/84
[2018-04-20] MEDS: methylPREDNISolone SOD SUCC PF 125 MG/2 ML VIAL. IV SCH ×3 (06:23→21:38)
[2018-04-20 07:00] VITALS: BP 152/83
[2018-04-20] MEDS: IPRATRPIUM/ALBUTEROL 0.5/2.5MG 3 ML NEBU. NEB SCH ×4 (07:25→20:01)
[2018-04-20] MEDS: BUDESONIDE 0.5 MG/2 ML NEBU. NEB SCH ×2 (07:25→20:01)
[2018-04-20] MEDS: INSULIN LISPRO 300 UNITS/3 ML INSULN.PEN. SQ SCH ×3 (08:00→16:26)
[2018-04-20] MEDS: NAPROXEN 250 MG TABLET PO SCH ×2 (08:21→21:25)
[2018-04-20] MEDS: PANTOPRAZOLE 40 MG TABLET.DR. PO SCH (08:21)
[2018-04-20] MEDS: guaiFENesin DM 200MG/20MG 10 ML SYRUP PO SCH ×4 (08:21→21:26)
[2018-04-20] MEDS: SPIRONOLACTONE 25 MG TABLET PO SCH (08:21)
[2018-04-20] MEDS: metFORMIN 850 MG TABLET PO SCH (08:21)
[2018-04-20] MEDS: hydroCHLOROthiazide 25 MG TABLET PO SCH (08:22)
[2018-04-20] MEDS: BENZONATATE 100 MG CAPSULE. PO SCH ×3 (08:22→21:25)
[2018-04-20] MEDS: CETIRIZINE HCL 10 MG TABLET. PO SCH (08:22)
[2018-04-20] MEDS: amLODIPine BESYLATE 10 MG TABLET PO SCH (08:23)
[2018-04-20 11:31] VITALS: BP 143/65
--- NOTE | 2018-04-20 11:46 | PDOC ---
PROGRESS NOTES Chief Complaint Chief Complaint 1. acute hypoxic resp failure 2. mod intermittent asthma with severe acute exacerbation 3. thc abuse 4. metabolic syndrome History of Present Illness History of Present Illness Still wheezy But seems to be loosening up, she is coughing a bit more today rales AND wheezy on auscultation No pneumonia on chest x-ray She tells me she cannot afford the inhaled steroids Has a nebulizer at home Nonsmoker No recent travels. 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 Richard Not able to DC today, very wheezy Start some Tessalon Perles and cough medicine scheduled Continue Pulmicort and DuoNeb's. I would keep tele on Vitals Vitals Vital Signs Date Time Temp Pulse Resp B/P (MAP) Pulse Ox O2 Delivery O2 Flow Rate FiO2 04/20/18 11:31 99.4 73 16 143/65 (91) 96 Room Air 99.4 04/19/18 10:47 1.0 Physical Exam General: Alert, Oriented X3, Cooperative Heart: Regular rate, Normal S1, Normal S2, No murmurs Lungs: Wheezing Abdomen: Normal bowel sounds, Soft, No tenderness, No hepatosplenomegaly Extremities: No clubbing, No cyanosis, No edema Skin: No rashes, No breakdown, No significant lesion Labs LABS Laboratory Tests Test 04/19/18 16:28 04/20/18 07:23 Glucose (Fingerstick) 139 mg/dL (70-99) 132 mg/dL (70-99) Review of Systems Review of Systems As per history of present illness, the rest of ROS 14 point negative Comment Review of Relevant I have reviewed the following items neil (where applicable) has been applied. Labs Laboratory Tests Test 04/18/18 14:08 04/18/18 20:28 04/19/18 06:27 04/19/18 07:28 White Blood Count 17.2 x10^3/uL (4.0-11.0) 16.3 x10^3/uL (4.0-11.0) Red Blood Count 3.97 x10^6/uL (3.50-5.40) 3.65 x10^6/uL (3.50-5.40) Hemoglobin 12.0 g/dL (12.0-15.5) 11.1 g/dL (12.0-15.5) Hematocrit 35.6 % (36.0-47.0) 32.6 % (36.0-47.0) Mean Corpuscular Volume 90 fL (79-100) 89 fL (79-100) Mean Corpuscular Hemoglobin 30 pg (25-35) 31 pg (25-35) Mean Corpuscular Hemoglobin Concent 34 g/dL (31-37) 34 g/dL (31-37) Red Cell Distribution Width 14.6 % (11.5-14.5) 14.7 % (11.5-14.5) Platelet Count 477 x10^3/uL (140-400) 400 x10^3/uL (140-400) Neutrophils (%) (Auto) 87 % (31-73) 91 % (31-73) Lymphocytes (%) (Auto) 8 % (24-48) 6 % (24-48) Monocytes (%) (Auto) 5 % (0-9) 3 % (0-9) Eosinophils (%) (Auto) 0 % (0-3) 0 % (0-3) Basophils (%) (Auto) 0 % (0-3) 0 % (0-3) Neutrophils # (Auto) 15.0 x10^3uL (1.8-7.7) 14.8 x10^3uL (1.8-7.7) Lymphocytes # (Auto) 1.3 x10^3/uL (1.0-4.8) 1.0 x10^3/uL (1.0-4.8) Monocytes # (Auto) 0.8 x10^3/uL (0.0-1.1) 0.4 x10^3/uL (0.0-1.1) Eosinophils # (Auto) 0.0 x10^3/uL (0.0-0.7) 0.0 x10^3/uL (0.0-0.7) Basophils # (Auto) 0.1 x10^3/uL (0.0-0.2) 0.0 x10^3/uL (0.0-0.2) Segmented Neutrophils % 81 % (35-66) Band Neutrophils % 4 % (0-9) Lymphocytes % 10 % (24-48) Monocytes % 5 % (0-10) Platelet Estimate Increased (ADEQUATE) Sodium Level 139 mmol/L (136-145) 141 mmol/L (136-145) Potassium Level 3.2 mmol/L (3.5-5.1) 4.3 mmol/L (3.5-5.1) Chloride Level 105 mmol/L (98-107) 106 mmol/L (98-107) Carbon Dioxide Level 26 mmol/L (21-32) 24 mmol/L (21-32) Anion Gap 8 (6-14) 11 (6-14) Blood Urea Nitrogen 12 mg/dL (7-20) 13 mg/dL (7-20) Creatinine 0.9 mg/dL (0.6-1.0) 0.7 mg/dL (0.6-1.0) Estimated GFR (Cockcroft-Gault) 78.1 104.4 BUN/Creatinine Ratio 13 (6-20) Glucose Level 119 mg/dL (70-99) 159 mg/dL (70-99) Calcium Level 10.0 mg/dL (8.5-10.1) 9.5 mg/dL (8.5-10.1) Magnesium Level 2.0 mg/dL (1.8-2.4) Total Bilirubin 0.5 mg/dL (0.2-1.0) Aspartate Amino Transf (AST/SGOT) 21 U/L (15-37) Alanine Aminotransferase (ALT/SGPT) 22 U/L (14-59) Alkaline Phosphatase 132 U/L (46-116) Total Protein 8.6 g/dL (6.4-8.2) Albumin 4.0 g/dL (3.4-5.0) Albumin/Globulin Ratio 0.9 (1.0-1.7) Glucose (Fingerstick) 211 mg/dL (70-99) 138 mg/dL (70-99) Test 04/19/18 10:46 04/19/18 16:28 04/20/18 07:23 Glucose (Fingerstick) 176 mg/dL (70-99) 139 mg/dL (70-99) 132 mg/dL (70-99) Laboratory Tests Test 04/19/18 16:28 04/20/18 07:23 Glucose (Fingerstick) 139 mg/dL (70-99) 132 mg/dL (70-99) Medications Current Medications Albuterol Sulfate (Ventolin Neb Soln) 10 mg 1X ONCE CONT NEB Last administered on 04/18/18at 14:11; Start 04/18/18 at 14:30; Stop 04/18/18 at 14:31 ; Status DC Methylprednisolone Sodium Succinate (SOLU-Medrol 125MG VIAL) 125 mg 1X ONCE IV Last administered on 04/18/18at 14:20; Start 04/18/18 at 14:30; Stop 04/18/18 at 14:31; Status DC Magnesium Sulfate/ Dextrose 100 ml @ 100 mls/hr 1X ONCE IV Last administered on 04/18/18at 15:50; Start 04/18/18 at 15:30; Stop 04/18/18 at 16:29; Status DC Potassium Chloride (KCl Oral Soln) 40 meq 1X ONCE PO Last administered on 04/18at 15:52; Start 04/18/18 at 15:45; Stop 04/18/18 at 15:46; Status DC Albuterol/ Ipratropium (Duoneb) 3 ml RTQID NEB Last administered on 04/19/18at 14:54; Start 04/18/18 at 16:00; Stop 04/19/18 at 15:15; Status DC Albuterol Sulfate (Ventolin Neb Soln) 2.5 mg PRN Q4HRS PRN NEB SHORTNESS OF BREATH Last administered on 04/19/18at 04:01; Start 04/18/18 at 17:45 Amlodipine Besylate (Norvasc) 10 mg DAILY PO Last administered on 04/20/18 08: 23; Start 04/19/18 at 09:00 Metformin HCl (Glucophage) 850 mg DAILYWBKFT PO Last administered on 04/20/18at 08:21; Start 04/19/18 at 08:00 Budesonide (Pulmicort) 0.5 mg RTBID NEB Last administered on 04/20/18 07:25; Start 04/18/18 at 20:00 Hydrochlorothiazide (Hydrodiuril) 25 mg DAILY PO Last administered on 04/20/18at 08:22; Start 04/19/18 at 09:00 Naproxen (Naprosyn) 750 mg BID PO Last administered on 04/20/18at 08:21; Start at 21:00 Spironolactone (Aldactone) 25 mg DAILY PO Last administered on 04/20/18at 08:21; Start 04/19/18 at 09:00 Cetirizine HCl (ZyrTEC) 10 mg DAILY PO Last administered on 04/20/18at 08:22; Start 04/19/18 at 09:00 Methylprednisolone Sodium Succinate (SOLU-Medrol 125MG VIAL) 100 mg Q8HRS IV Last administered on 04/20/18at 06:23; Start 04/18/18 at 22:00 Montelukast Sodium (Singulair) 10 mg QHS PO Last administered on 04/19/18at 20: 51; Start 04/18/18 at 21:00 Pantoprazole Sodium (Protonix) 40 mg DAILYAC PO Last administered on 04/20/18at 08:21; Start 04/19/18 at 07:30 Potassium Chloride (Klor-Con) 40 meq 1X ONCE PO ; Start 04/18/18 at 19:15; Stop 04/18/18 at 19:16; Status UNV Acetaminophen (Tylenol) 500 mg PRN Q6HRS PRN PO MILD PAIN / TEMP; Start at 10:00 Acetaminophen/ Codeine Phosphate (Tylenol #3) 1 tab PRN Q6HRS PRN PO PAIN; Start 04/19/18 at 10:00 Ondansetron HCl (Zofran) 4 mg PRN Q6HRS PRN IV NAUSEA/VOMITING; Start 04/19/18 at 10:00 Acetaminophen/ Hydrocodone Bitart (Lortab 5/325) 1 tab PRN Q4HRS PRN PO PAIN; Start 04/19/18 at 10:00 Morphine Sulfate (Morphine Sulfate) 2 mg PRN Q2HR PRN IV PAIN; Start 04/19/18 at 10:00 Insulin Human Lispro (HumaLOG) 0-9 UNITS TIDWMEALS SQ Last administered on 04/19at 12:49; Start 04/19/18 at 12:00 Dextrose (Dextrose 50%-Water Syringe) 12.5 gm PRN Q15MIN PRN IV SEE COMMENTS; Start 04/19/18 at 10:00 Benzonatate (Tessalon Perle) 100 mg [id number] PO Last administered on 04/20/18at 08: 22; Start 04/19/18 at 14:00 Guaifenesin (Robitussin Dm) 10 ml QID PO Last administered on 04/20/18at 08:21; Start 04/19/18 at 13:00 Albuterol Sulfate (Ventolin Neb Soln) 2.5 mg PRN Q2HR PRN NEB [id number]; Start at 15:15; Status UNV Albuterol/ Ipratropium (Duoneb) 3 ml RTQID NEB Last administered on 04/20/18at 10 :57; Start 04/19/18 at 16:00 Enoxaparin Sodium (Lovenox 40mg Syringe) 40 mg Q24H SQ Last administered on at 17:18; Start 04/19/18 at 16:00 Diphenhydramine HCl (Benadryl) 25 mg PRN QHS PRN PO INSOMNIA Last administered on 04/19/18at 22:45; Start 04/19/18 at 22:45 Active Scripts Active Reported Amlodipine Besylate 10 Mg Tablet 10 Mg PO DAILY Metformin Hcl 850 Mg Tablet 850 Mg PO DAILYWBKFT Spironolactone 25 Mg Tablet 1 Tab PO DAILY Hydrochlorothiazide Capsule (Hydrochlorothiazide) 12.5 Mg Capsule 25 Mg PO DAILY Albuterol Sulfate Neb Soln (Albuterol Sulfate) 2.5 Mg/3 Ml Vial.neb 1 Vial NEB PRN Q4HRS Naproxen 500 Mg Tablet.dr 750 Mg PO BID patient takes in am and at night Advair 250-50 Diskus (Fluticasone/Salmeterol) 1 Each Disk.w.dev 1 Puff IH BID Vitals/I & O Vital Sign - Last 24 Hours 04/19/18 04/19/18 04/19/18 04/19/18 14:56 15:38 19:00 19:30 Temp 98.6 98.1 98.6 98.1 Pulse 96 75 Resp 16 16 B/P (MAP) 110/71 (84) 160/93 (115) Pulse Ox 93 94 O2 Delivery Room Air Room Air Room Air Room Air 804/19/18 04/19/18 04/20/18 19:50 19:53 23:00 03:00 Temp 97.7 97.9 97.7 97.9 Pulse 80 75 Resp 16 16 B/P (MAP) 152/80 (104) 139/84 (102) Pulse Ox 95 95 91 91 O2 Delivery Room Air Room Air Room Air Room Air 04/20/18 04/20/18 04/20/18 04/20/18 07:00 07:28 07:30 08:23 Temp 99.0 99.0 Pulse 74 74 Resp 16 B/P (MAP) 152/83 (106) 152/83 Pulse Ox 96 95 O2 Delivery Room Air Room Air Room Air 04/20/18 04/20/18 10:57 11:31 Temp 99.4 99.4 Pulse 73 Resp 16 B/P (MAP) 143/65 (91) Pulse Ox 97 96 O2 Delivery Room Air Room Air BROOKE GILLIAM MD Apr 20, 2018 11:46
--- NOTE | 2018-04-20 14:10 | PDOC ---
PULMONARY PROGRESS NOTES Subjective PT STILL SOA AND WHEEZING Vitals Vital Signs Date Time Temp Pulse Resp B/P (MAP) Pulse Ox O2 Delivery O2 Flow Rate FiO2 04/20/18 11:31 99.4 73 16 143/65 (91) 96 Room Air 99.4 04/19/18 10:47 1.0 ROS: No Nausea, No Chest Pain, No Abdominal Pain, No Increase Cough Lungs: Wheezing Cardiovascular: S1, S2 Abdomen: Soft Neuro Exam: Alert Extremities: No Edema Skin: Warm Labs Laboratory Tests Test 04/18/18 20:28 04/19/18 06:27 04/19/18 07:28 04/19/18 10:46 Glucose (Fingerstick) 211 mg/dL (70-99) 138 mg/dL (70-99) 176 mg/dL (70-99) White Blood Count 16.3 x10^3/uL (4.0-11.0) Red Blood Count 3.65 x10^6/uL (3.50-5.40) Hemoglobin 11.1 g/dL (12.0-15.5) Hematocrit 32.6 % (36.0-47.0) Mean Corpuscular Volume 89 fL (79-100) Mean Corpuscular Hemoglobin 31 pg (25-35) Mean Corpuscular Hemoglobin Concent 34 g/dL (31-37) Red Cell Distribution Width 14.7 % (11.5-14.5) Platelet Count 400 x10^3/uL (140-400) Neutrophils (%) (Auto) 91 % (31-73) Lymphocytes (%) (Auto) 6 % (24-48) Monocytes (%) (Auto) 3 % (0-9) Eosinophils (%) (Auto) 0 % (0-3) Basophils (%) (Auto) 0 % (0-3) Neutrophils # (Auto) 14.8 x10^3uL (1.8-7.7) Lymphocytes # (Auto) 1.0 x10^3/uL (1.0-4.8) Monocytes # (Auto) 0.4 x10^3/uL (0.0-1.1) Eosinophils # (Auto) 0.0 x10^3/uL (0.0-0.7) Basophils # (Auto) 0.0 x10^3/uL (0.0-0.2) Sodium Level 141 mmol/L (136-145) Potassium Level 4.3 mmol/L (3.5-5.1) Chloride Level 106 mmol/L (98-107) Carbon Dioxide Level 24 mmol/L (21-32) Anion Gap 11 (6-14) Blood Urea Nitrogen 13 mg/dL (7-20) Creatinine 0.7 mg/dL (0.6-1.0) Estimated GFR (Cockcroft-Gault) 104.4 Glucose Level 159 mg/dL (70-99) Calcium Level 9.5 mg/dL (8.5-10.1) Test 04/19/18 16:28 04/20/18 07:23 Glucose (Fingerstick) 139 mg/dL (70-99) 132 mg/dL (70-99) Laboratory Tests Test 04/19/18 16:28 04/20/18 07:23 Glucose (Fingerstick) 139 mg/dL (70-99) 132 mg/dL (70-99) Medications Active Scripts Medications Dose Route/Sig Max Daily Dose Days Date Category Dose Instructions Amlodipine Besylate 10 Mg Tablet 10 Mg PO DAILY 04/18/18 Reported Metformin Hcl 850 Mg Tablet 850 Mg PO DAILYWBKFT 04/18/18 Reported Spironolactone 25 Mg Tablet 1 Tab PO DAILY 04/18/18 Reported Hydrochlorothiazide Capsule (Hydrochlorothiazide) 12.5 Mg Capsule 25 Mg PO DAILY 04/18/18 Reported Albuterol Sulfate Neb Soln (Albuterol Sulfate) 2.5 Mg/3 Ml Vial.neb 1 Vial NEB PRN Q4HRS 04/18/18 Reported Naproxen 500 Mg Tablet.dr 750 Mg PO BID 04/18/18 Reported patient takes in am and at night Advair 250-50 Diskus (Fluticasone/Salmeterol) 1 Each Disk.w.dev 1 Puff IH BID 07/04/15 Reported Impression . IMPRESSION: 1. Acute hypoxemic respiratory failure. 2. Acute exacerbation of asthma. 3. Acute bronchitis. 4. Marijuana use. 5. History of allergies to pollen and dust. 6. Hypertension. Plan . STILL WHEEZING ON EXAM PROLONG EXPIRATORY PHASE WILL CONTINUE THE SAME WILL NEED SYMBICORT ON D/C 1. We will continue current regimen with IV steroids. 2. Nebulized treatments. 3. Pulmicort. 4. Discussed the above with the patient. I informed her that she would do well with the addition of a steroid inhaler. 5. Continue DVT and GI prophylaxis. DAMON HINOJOSA MD Apr 20, 2018 14:10
[2018-04-20 15:24] VITALS: BP 114/45
[2018-04-20] MEDS: ENOXAPARIN 40 MG/0.4 ML SYRINGE. SQ SCH (16:33)
[2018-04-20 19:35] VITALS: BP 157/87
[2018-04-20] MEDS: MONTELUKAST SODIUM 10 MG TABLET. PO SCH (21:24)
[2018-04-20] MEDS: diphenhydrAMINE HCL 25 MG CAPSULE PO PRN (21:26)
[2018-04-20 23:14] VITALS: BP 113/70
[2018-04-21 03:59] VITALS: BP 127/62
[2018-04-21] MEDS: methylPREDNISolone SOD SUCC PF 125 MG/2 ML VIAL. IV SCH ×2 (05:53→13:36)
[2018-04-21 07:00] VITALS: BP 154/85
[2018-04-21] MEDS: INSULIN LISPRO 300 UNITS/3 ML INSULN.PEN. SQ SCH ×2 (08:00→12:00)
[2018-04-21] MEDS: IPRATRPIUM/ALBUTEROL 0.5/2.5MG 3 ML NEBU. NEB SCH ×2 (08:06→12:15)
[2018-04-21] MEDS: BUDESONIDE 0.5 MG/2 ML NEBU. NEB SCH (08:06)
[2018-04-21] MEDS: guaiFENesin DM 200MG/20MG 10 ML SYRUP PO SCH ×2 (08:32→13:00)
[2018-04-21] MEDS: BENZONATATE 100 MG CAPSULE. PO SCH (08:33)
[2018-04-21] MEDS: metFORMIN 850 MG TABLET PO SCH (08:33)
[2018-04-21] MEDS: amLODIPine BESYLATE 10 MG TABLET PO SCH (08:33)
[2018-04-21] MEDS: CETIRIZINE HCL 10 MG TABLET. PO SCH (08:33)
[2018-04-21] MEDS: SPIRONOLACTONE 25 MG TABLET PO SCH (08:33)
[2018-04-21] MEDS: PANTOPRAZOLE 40 MG TABLET.DR. PO SCH (08:33)
[2018-04-21] MEDS: NAPROXEN 250 MG TABLET PO SCH (08:33)
[2018-04-21] MEDS: hydroCHLOROthiazide 25 MG TABLET PO SCH (08:34)
--- NOTE | 2018-04-21 10:41 | PDOC ---
PULMONARY PROGRESS NOTES Subjective PT STILL SOA AND WHEEZING Vitals Vital Signs Date Time Temp Pulse Resp B/P (MAP) Pulse Ox O2 Delivery O2 Flow Rate FiO2 04/21/18 08:33 47 154/85 04/21/18 08:17 97 Room Air 04/21/18 07:00 98.4 16 98.4 ROS: No Nausea, No Chest Pain, No Abdominal Pain, No Increase Cough Lungs: Wheezing Cardiovascular: S1, S2 Abdomen: Soft Neuro Exam: Alert Extremities: No Edema Skin: Warm Labs Laboratory Tests Test 04/19/18 10:46 04/19/18 16:28 04/20/18 07:23 04/20/18 16:16 Glucose (Fingerstick) 176 mg/dL (70-99) 139 mg/dL (70-99) 132 mg/dL (70-99) 149 mg/dL (70-99) Test 04/20/18 20:21 04/21/18 07:41 Glucose (Fingerstick) 137 mg/dL (70-99) 100 mg/dL (70-99) Laboratory Tests Test 04/20/18 16:16 04/20/18 20:21 04/21/18 07:41 Glucose (Fingerstick) 149 mg/dL (70-99) 137 mg/dL (70-99) 100 mg/dL (70-99) Medications Active Scripts Medications Dose Route/Sig Max Daily Dose Days Date Category Dose Instructions Amlodipine Besylate 10 Mg Tablet 10 Mg PO DAILY 04/18/18 Reported Metformin Hcl 850 Mg Tablet 850 Mg PO DAILYWBKFT 04/18/18 Reported Spironolactone 25 Mg Tablet 1 Tab PO DAILY 04/18/18 Reported Hydrochlorothiazide Capsule (Hydrochlorothiazide) 12.5 Mg Capsule 25 Mg PO DAILY 04/18/18 Reported Albuterol Sulfate Neb Soln (Albuterol Sulfate) 2.5 Mg/3 Ml Vial.neb 1 Vial NEB PRN Q4HRS 04/18/18 Reported Naproxen 500 Mg Tablet.dr 750 Mg PO BID 04/18/18 Reported patient takes in am and at night Advair 250-50 Diskus (Fluticasone/Salmeterol) 1 Each Disk.w.dev 1 Puff IH BID 07/04/15 Reported Impression . IMPRESSION: 1. Acute hypoxemic respiratory failure. 2. Acute exacerbation of asthma. 3. Acute bronchitis. 4. Marijuana use. 5. History of allergies to pollen and dust. 6. Hypertension. Plan . OK TO DC RX FOR BREO AND PROAIR, PRED AND DOXY WRITTEN FOLLOW UP IN OFFICE IN 2-4 WEEKS DAMON HINOJOSA MD Apr 21, 2018 10:41
[2018-04-21 11:00] VITALS: BP 146/64
--- NOTE | 2018-04-21 11:25 | PDOC3 ---
Discharge Summary Visit Information Date of Admission: Apr 18, 2018 Date of Discharge: Apr 21, 2018 Final Diagnosis 1. acute hypoxic resp failure 2. mod intermittent asthma with severe acute exacerbation 3. thc use Brief Hospital Course Allergies Allergies Coded Allergies Type Severity Reaction Last Updated Verified No Known Drug Allergies 07/01/15 No Vital Signs Vital Signs Date Time Temp Pulse Resp B/P (MAP) Pulse Ox O2 Delivery O2 Flow Rate FiO2 04/21/18 08:33 47 154/85 04/21/18 08:17 97 Room Air 04/21/18 07:00 98.4 16 98.4 Lab Results Laboratory Tests Test 04/19/18 16:28 04/20/18 07:23 04/20/18 16:16 04/20/18 20:21 Glucose (Fingerstick) 139 mg/dL (70-99) 132 mg/dL (70-99) 149 mg/dL (70-99) 137 mg/dL (70-99) Test 04/21/18 07:41 Glucose (Fingerstick) 100 mg/dL (70-99) Laboratory Tests Test 04/20/18 16:16 04/20/18 20:21 04/21/18 07:41 Glucose (Fingerstick) 149 mg/dL (70-99) 137 mg/dL (70-99) 100 mg/dL (70-99) Brief Hospital Course Ms. 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 In any case these toddlers are sick with URI symptoms. She comes in with moderate to severe exacerbation of her asthma flare wheezing anterior-posterior auscultation. 3-4 days for us to get her better. Otherwise no PT needs and no O2 needs. Cost is an issue for her to afford the steroids inhalers. Comanage with pulmonary per scripts have been written by pulmonary. Home today with no PT needs and scripts on chart. Work excuse slip I have provided for also on chart. dc < 30 mins Discharge Information Condition at Discharge: Improved, Stable Disposition/Orders: D/C to Home Scheduled Albuterol Sulfate (Albuterol Sulfate Neb Soln) 2.5 Mg/3 Ml Vial.neb, 1 VIAL NEB PRN Q4HRS, #50 (Reported) Entered as Reported by: GIGI SHARPE on 8/1723 Last Action: Continued on 04/18/181743 by GIGI SHARPE Amlodipine Besylate (Amlodipine Besylate) 10 Mg Tablet, 10 MG PO DAILY, ( Reported) Entered as Reported by: GIGI SHARPE on 04/18/181732 Last Action: Continued on 04/18/181743 by GIGI SHARPE Fluticasone/Salmeterol (Advair 250-50 Diskus) 1 Each Disk.w.dev, 1 PUFF IH BID, #3 Ref 3 (Reported) Entered as Reported by: CHRISTIAN RICH on 07/04/15 1451 Last Action: Converted on 04/18/181743 by GIGI SHARPE Hydrochlorothiazide (Hydrochlorothiazide Capsule ) 12.5 Mg Capsule, 25 MG PO DAILY for DIURETIC, Ref 0 (Reported) Entered as Reported by: GIGI SHARPE on 04/18/181732 Last Action: Converted on 04/18/181743 by GIGI SHARPE Metformin Hcl (Metformin Hcl) 850 Mg Tablet, 850 MG PO DAILYWBKFT for ANTI- DIABETIC, Ref 0 (Reported) Entered as Reported by: GIGI SHARPE on 04/18/181732 Last Action: Continued on 04/18/181743 by GIGI SHARPE Naproxen (Naproxen) 500 Mg Tablet.dr, 750 MG PO BID, (Reported) patient takes in am and at night Entered as Reported by: GIGI SHARPE on 04/18/181723 Last Action: Converted on 04/18/181743 by GIGI SHARPE Spironolactone (Spironolactone) 25 Mg Tablet, 1 TAB PO DAILY, #90 Ref 1 ( Reported) Entered as Reported by: GIGI SHARPE on 04/18/181732 Last Action: Converted on 04/18/181743 by BROOKE STANLEY MD Apr 21, 2018 11:24
== END 2018-04-21 13:50 | disposition home or self-care (01) | DRG 189 ==
LOC: ER 13:33 → 6 SOUTH 15:20
PROVIDERS: ADMIT Family Medicine; ATTEND Family Medicine
DX: J96.01 Acute respiratory failure with hypoxia (principal); J45.21 Mild intermittent asthma with (acute) exacerbation; E78.00 Pure hypercholesterolemia, unspecified; E78.5 Hyperlipidemia, unspecified; E88.81 Metabolic syndrome and other insulin resistance; F12.10 Cannabis abuse, uncomplicated; I10 Essential (primary) hypertension; J06.9 Acute upper respiratory infection, unspecified; J20.9 Acute bronchitis, unspecified; M19.90 Unspecified osteoarthritis, unspecified site; K21.9 Gastro-esophageal reflux disease without esophagitis; Z79.84 Long term (current) use of oral hypoglycemic drugs; Z82.5 Family history of asthma and other chronic lower respiratory diseases; Z90.710 Acquired absence of both cervix and uterus; Z87.891 Personal history of nicotine dependence; Z91.09 Other allergy status, other than to drugs and biological substances
CPT/HCPCS: 36415; 71045; 80048; 80053; 82962; 83735; 85007; 85025; 93005; 94640; 94644; 94760; 96374; J1650; J1815; J2930; J3475; J7613; J7620; J7626; Q0163; 99285-25

== ENCOUNTER 2019-05-02 18:46 | Emergency (ER) | payer OTHER ==
[~2019-05-02] VITALS: Ht 167.6 cm; Wt 77.1 kg
[~2019-05-02 18:46] MED LIST changes: +ALBU2.5V5 NEB; +AMLO10TA8 PO; +HYDR12.575 PO; +METF850T8 PO; +NAPR500T8 PO; +SPIR25TA5 PO
[2019-05-02] MEDS ORDERED: IV NORMAL SALINE 1000ML BAG 1,000 ML IV SCH (19:14)
[2019-05-02] MEDS ORDERED: ONDANSETRON PF 4 MG/2 ML VIAL. IV ONE (19:15)
--- NOTE | 2019-05-02 19:20 | PHYS DOC ---
Past Medical History Past Medical History: Asthma, High Cholesterol, Hypertension Past Surgical History: Hysterectomy Alcohol Use: Occasionally Drug Use: Marijuana Adult General Chief Complaint Chief Complaint: RECTAL BLEED HPI HPI Patient is a 59-year-old female who presents with complaint of abdominal cramping with nausea. She also indicates that she has noticed some bright red bleeding per rectum that started this morning when she had a bowel movement. She states that it was quite a bit because when she wiped, the blood covered all of the tissue. She denies any chest pain or shortness breath. She denies any li ghtheadedness. She states that with her bowel movement this morning, she did not strain and bowel movement was soft. She does indicate that she has a history of rectal bleeding in the past. She does report that she is going be scheduled for an upper GI series. Currently she rates her pain is mild but states that she did take a pain pill before coming to the emergency room. She states that at its w orse it is about a 6 or 7 out of 10.[] Review of Systems Review of Systems Constitutional: Denies fever or chills [] Respiratory: Denies cough or shortness of breath [] Cardiovascular: No additional information not addressed in HPI [] GI: Complains of abdominal pain with nausea. Denies vomiting or diarrhea. Complains of rectal bleeding. [] Integument: Denies rash or skin lesions [] Neurologic: Denies headache, focal weakness or sensory changes [] All other systems were reviewed and found to be within normal limits, except as documented in this note. Current Medications Current Medications Current Medications Medications (Trade) Dose Ordered Sig/Iris Start Time Stop Time Status Last Admin Dose Admin Info (CONTRAST GIVEN -- Rx MONITORING) 1 each PRN DAILY PRN 05/02/19 20:30 05/02/19 21:51 DC Iohexol (Omnipaque 300 Mg/ml) 75 ml 1X ONCE 05/02/19 20:30 05/02/19 20:31 DC 05/02/19 20:37 75 ML Morphine Sulfate (Morphine Sulfate) 4 mg STK-MED ONCE 05/02/19 21:22 05/02/19 21:22 DC Ondansetron HCl (Zofran) 4 mg 1X ONCE 05/02/19 19:15 05/02/19 19:17 DC 05/02/19 19:23 4 MG Sodium Chloride 1,000 ml @ 1,000 mls/hr Q1H 05/02/19 19:14 05/02/19 20:13 DC 05/02/19 19:23 1,000 MLS/HR Allergies Allergies Allergies Coded Allergies Type Severity Reaction Last Updated Verified No Known Drug Allergies 07/01/15 No Physical Exam Physical Exam Constitutional: Well developed, well nourished, no acute distress, non-toxic appearance. [] HENT: Normocephalic, atraumatic, bilateral external ears normal, oropharynx moist, no oral exudates, nose normal. [] Eyes: PERRLA, EOMI, conjunctiva normal, no discharge. [] Neck: Normal range of motion, no tenderness, supple, no stridor. [] Cardiovascular: Regular rate and rhythm[] Lungs & Thorax: Bilateral breath sounds clear to auscultation [] Abdomen: Bowel sounds normal, soft, with upper abdominal tenderness. Rectal exam was performed with nurse auto refinisher present. No hemorrhoids were identified on exam. [] Skin: Warm, dry, no erythema, no rash. [] Extremities: No tenderness, no cyanosis, no clubbing, ROM intact. [] Neurologic: Alert and oriented X 3, no focal deficits noted. [] Current Patient Data Vital Signs Vital Signs Date Time Temp Pulse Resp B/P (MAP) Pulse Ox O2 Delivery O2 Flow Rate FiO2 05/02/19 21:30 70 14 155/59 (91) 95 Room Air 05/02/19 19:00 97.3 97.3 Lab Values Laboratory Tests Test 05/02/19 19:05 05/02/19 19:20 Urine Collection Type Unknown Urine Color Yellow Urine Clarity Clear Urine pH 5.5 Urine Specific [place] 1.020 Urine Protein Negative mg/dL (NEG-TRACE) Urine Glucose (UA) Negative mg/dL (NEG) Urine Ketones (Stick) Negative mg/dL (NEG) Urine Blood Negative (NEG) Urine Nitrite Negative (NEG) Urine Bilirubin Negative (NEG) Urine Urobilinogen Dipstick 0.2 mg/dL (0.2 mg/dL) Urine Leukocyte Esterase Negative (NEG) Urine RBC Rare /HPF (0-2) Urine WBC 1-4 /HPF (0-4) Urine Squamous Epithelial Cells Mod /LPF Urine Bacteria Few /HPF (0-FEW) Urine Mucus Mod /LPF Urine Yeast Present /HPF White Blood Count 12.9 x10^3/uL (4.0-11.0) H Red Blood Count 4.27 x10^6/uL (3.50-5.40) Hemoglobin 13.1 g/dL (12.0-15.5) Hematocrit 38.7 % (36.0-47.0) Mean Corpuscular Volume 91 fL (79-100) Mean Corpuscular Hemoglobin 31 pg (25-35) Mean Corpuscular Hemoglobin Concent 34 g/dL (31-37) Red Cell Distribution Width 16.2 % (11.5-14.5) H Platelet Count 397 x10^3/uL (140-400) Neutrophils (%) (Auto) 64 % (31-73) Lymphocytes (%) (Auto) 26 % (24-48) Monocytes (%) (Auto) 7 % (0-9) Eosinophils (%) (Auto) 2 % (0-3) Basophils (%) (Auto) 1 % (0-3) Neutrophils # (Auto) 8.2 x10^3/uL (1.8-7.7) H Lymphocytes # (Auto) 3.4 x10^3/uL (1.0-4.8) Monocytes # (Auto) 0.9 x10^3/uL (0.0-1.1) Eosinophils # (Auto) 0.3 x10^3/uL (0.0-0.7) Basophils # (Auto) 0.1 x10^3/uL (0.0-0.2) Sodium Level 137 mmol/L (136-145) Potassium Level 3.8 mmol/L (3.5-5.1) Chloride Level 97 mmol/L (98-107) L Carbon Dioxide Level 28 mmol/L (21-32) Anion Gap 12 (6-14) Blood Urea Nitrogen 25 mg/dL (7-20) H Creatinine 1.1 mg/dL (0.6-1.0) H Estimated GFR (Cockcroft-Gault) 61.5 BUN/Creatinine Ratio 23 (6-20) H Glucose Level 94 mg/dL (70-99) Calcium Level 10.0 mg/dL (8.5-10.1) Total Bilirubin 0.6 mg/dL (0.2-1.0) Aspartate Amino Transferase (AST) 63 U/L (15-37) H Alanine Aminotransferase (ALT) 116 U/L (14-59) H Alkaline Phosphatase 124 U/L (46-116) H Total Protein 8.8 g/dL (6.4-8.2) H Albumin 4.3 g/dL (3.4-5.0) Albumin/Globulin Ratio 1.0 (1.0-1.7) Lipase 312 U/L (73-393) Laboratory Tests 05/02/19 19:20 Laboratory Tests 05/02/19 19:20 EKG EKG [] Radiology/Procedures Radiology/Procedures [] Impressions: PROCEDURE: CT ABD PELV W/ IV CONTRST ONLY Exam: CT abdomen and pelvis with contrast INDICATION: Abdominal pain and rectal bleeding TECHNIQUE: Sequential axial images through the abdomen and pelvis obtained following the administration of 75 mL of Omni 300 IV contrast. Sagittal and coronal reformatted images were reconstructed from the axial data and reviewed. Comparisons: None FINDINGS: Heart size is normal. No pericardial effusion. Visualized lung bases are clear. No pleural effusion. Liver, spleen, pancreas, and adrenals are unremarkable. Kidneys demonstrate symmetric enhancement. No perinephric inflammation or hydronephrosis. No renal or ureteral calculi are identified. Bladder is partially distended and appears thin-walled. Uterus is absent. No abnormal adnexal mass. Large and small bowel are unremarkable. Appendix is normal. No free intra-abdominal air or fluid. No obstruction. Abdominal aorta has a normal course and caliber. Abdominal vasculature is patent. No enlarged intra-abdominal lymph nodes are identified. No suspicious osseous lesion or acute fracture. IMPRESSION: No acute process identified within the abdomen or pelvis. Exposure: One or more of the following in the visualized dose reduction techniques were utilized for this examination: 1. Automated exposure control 2. Adjustment of the MA and/or KV according to patient size 3. Use of iterative of reconstructive technique Electronically signed by: Dedrick Henry MD (05/02/2019 9:04 PM) [facility] DICTATED and SIGNED BY: DEDRICK HENRY MD DATE: 05/02/192103 Course & Med Decision Making Course & Med Decision Making Pertinent Labs and Imaging studies reviewed. (See chart for details) [] Dragon Disclaimer Dragon Disclaimer This electronic medical record was generated, in whole or in part, using a voice recognition dictation system. Departure Departure Impression: Primary Impression: Upper abdominal pain Additional Impression: Rectal bleeding Disposition: HOME, SELF-CARE Condition: STABLE Referrals: BASIA CRABTREE DO (PCP) Patient Instructions: Abdominal Pain, Rectal Bleeding Scripts Ondansetron Hcl (ZOFRAN) 4 Mg Tablet 4 MG PO PRN TID PRN for NAUSEA, #15 nausea/vomiting Prov: CARLOZ SARAVIA Jr. DO 05/02/19 Hydrocodone/Apap 5-325 (NORCO 5-325 TABLET) 1 Each Tablet 1-2 EACH PO PRN Q6HRS PRN for PAIN, #15 as needed for pain Prov: CARLOZ SARAVIA Jr. DO 05/02/19 Problem Qualifiers CARLOZ SARAVIA Jr. DO May 02, 2019 19:20
[2019-05-02 19:22] LABS: BILIRUBIN,URINE NEGATIVE (NEG); CLARITY,URINE CLEAR; COLOR,URINE YELLOW; NITRITE,URINE NEGATIVE (NEG); PH,URINE 5.5; PROTEIN,URINE NEGATIVE (NEG-TRACE); UROBILINOGEN,URINE 0.2 mg/dL (0.2 mg/dL)
[2019-05-02 19:37] LABS: SQUAMOUS EPITHELIAL CELL,UR MOD /LPF
[2019-05-02 19:38] LABS: BACTERIA,URINE FEW /HPF (0-FEW); RBC,URINE RARE /HPF (0-2)
[2019-05-02 19:39] LABS: YEAST,URINE PRESENT /HPF
[2019-05-02 19:39] LABS: BASO # 0.1 x10^3/uL (0.0-0.2); BASO % 1 % (0-3); EOS # 0.3 x10^3/uL (0.0-0.7); EOS % 2 % (0-3); HEMATOCRIT 38.7 % (36.0-47.0); HEMOGLOBIN 13.1 g/dL (12.0-15.5); LYMPH # 3.4 x10^3/uL (1.0-4.8); LYMPH % 26 % (24-48); MEAN CORPUSCULAR HEMOGLOBIN 31 pg (25-35); MEAN CORPUSCULAR HGB CONC 34 g/dL (31-37); MEAN CORPUSCULAR VOLUME 91 fL (79-100); MONO # 0.9 x10^3/uL (0.0-1.1); MONO % 7 % (0-9); NEUT # 8.2 x10^3/uL (1.8-7.7); NEUT % 64 % (31-73); PLATELET COUNT 397 x10^3/uL (140-400); RED BLOOD COUNT 4.27 x10^6/uL (3.50-5.40); RED CELL DISTRIBUTION WIDTH 16.2 % (11.5-14.5); WHITE BLOOD COUNT 12.9 x10^3/uL (4.0-11.0)
[2019-05-02 19:46] LABS: CREATININE 1.1 mg/dL (0.6-1.0); GFR 61.5; POTASSIUM 3.8 mmol/L (3.5-5.1)
[2019-05-02 19:52] LABS: ALBUMIN 4.3 g/dL (3.4-5.0); TOTAL BILIRUBIN 0.6 mg/dL (0.2-1.0); TOTAL PROTEIN 8.8 g/dL (6.4-8.2)
[2019-05-02] MEDS ORDERED: IOHEXOL 300 MG/ML 100ML VIAL. IV ONE (20:30)
[2019-05-02] MEDS ORDERED: CONTRAST GIVEN. MC PRN (20:30)
--- NOTE | 2019-05-02 21:07 | RAD ---
Exam: CT abdomen and pelvis with contrast INDICATION: Abdominal pain and rectal bleeding TECHNIQUE: Sequential axial images through the abdomen and pelvis obtained following the administration of 75 mL of Omni 300 IV contrast. Sagittal and coronal reformatted images were reconstructed from the axial data and reviewed. Comparisons: None FINDINGS: Heart size is normal. No pericardial effusion. Visualized lung bases are clear. No pleural effusion. Liver, spleen, pancreas, and adrenals are unremarkable. Kidneys demonstrate symmetric enhancement. No perinephric inflammation or hydronephrosis. No renal or ureteral calculi are identified. Bladder is partially distended and appears thin-walled. Uterus is absent. No abnormal adnexal mass. Large and small bowel are unremarkable. Appendix is normal. No free intra-abdominal air or fluid. No obstruction. Abdominal aorta has a normal course and caliber. Abdominal vasculature is patent. No enlarged intra-abdominal lymph nodes are identified. No suspicious osseous lesion or acute fracture. IMPRESSION: No acute process identified within the abdomen or pelvis. Exposure: One or more of the following in the visualized dose reduction techniques were utilized for this examination: 1. Automated exposure control 2. Adjustment of the MA and/or KV according to patient size 3. Use of iterative of reconstructive technique Electronically signed by: Dedrick Renee MD (05/02/2019 9:04 PM) [facility]
[2019-05-02] MEDS ORDERED: MORPHINE SULFATE 4 MG/ML VIAL. ONE (21:22)
[2019-05-02] MEDS ORDERED: HYDR-3164 PO (21:28)
[2019-05-02] MEDS ORDERED: ONDA4TAB7 PO (21:28)
[2019-05-02 21:30] VITALS: BP 155/59
== END 2019-05-02 21:39 | disposition home or self-care (01) ==
LOC: ER 18:46
DX: K62.5 Hemorrhage of anus and rectum (principal); R11.0 Nausea; R10.10 Upper abdominal pain, unspecified; J45.909 Unspecified asthma, uncomplicated; E78.00 Pure hypercholesterolemia, unspecified; I10 Essential (primary) hypertension; Z90.710 Acquired absence of both cervix and uterus
CPT/HCPCS: 36415; 74177; 80053; 81001; 83690; 85025; 96374; 99285; J2405; J7030; Q9967